=== PATIENT | female | born 1995 | race American Indian/Alaskan Native ===

== ENCOUNTER 2017-12-03 18:59 | Outpatient (CLI) | payer OTHER, MEDICAID ==
[2017-12-03 20:06] VITALS: BP 127/72
[2017-12-03] MEDS ORDERED: VISTARIL PO ONE (20:25)
== END 2017-12-03 20:39 | disposition home or self-care (01) ==
LOC: TRG 18:59
PROVIDERS: ATTEND Obstetrics & Gynecology
DX: O47.1 False labor at or after 37 completed weeks of gestation (principal); Z3A.38 38 weeks gestation of pregnancy
CPT/HCPCS: Q0177

== ENCOUNTER 2017-12-08 12:56 | Outpatient (CLI) | payer OTHER, MEDICAID ==
[2017-12-08] MEDS ORDERED: VISTARIL PO ONE (16:22)
[2017-12-12 17:38] VITALS: BP 127/74
== END 2017-12-08 16:30 | disposition home or self-care (01) ==
LOC: TRG 12:56
PROVIDERS: ATTEND Obstetrics & Gynecology
DX: O62.9 Abnormality of forces of labor, unspecified (principal); Z3A.39 39 weeks gestation of pregnancy
CPT/HCPCS: Q0177

== ENCOUNTER 2017-12-09 06:35 | Outpatient (CLI) | payer OTHER, MEDICAID ==
[2017-12-09] MEDS ORDERED: VISTARIL PO PRN (09:01)
[2017-12-12 16:11] VITALS: BP 124/69
== END 2017-12-09 09:05 | disposition home or self-care (01) ==
LOC: TRG 06:35
PROVIDERS: ATTEND Obstetrics & Gynecology
DX: O62.9 Abnormality of forces of labor, unspecified (principal); O48.0 Post-term pregnancy; Z3A.40 40 weeks gestation of pregnancy
CPT/HCPCS: 59025; Q0177

== ENCOUNTER 2017-12-12 09:49 | Inpatient (IN) | payer OTHER, MEDICAID ==
[2017-12-12] MEDS ORDERED: NITRATEST PAPER MC ONE (14:40)
--- NOTE | 2017-12-12 15:02 | History and Physical Report ---
History of Present Illness Date of examination: 12/12/17 Chief complaint: painful contractions History of present illness: EDC Calculations by LMP: 12/12/2017 Past History : 4 Term Births: 2 Living Children: 2 Para: 2 Aborta: 1 Elect. Ab: 1 # 1 Delivery date: 01/27/2015 Weeks Gestation: 40 labor: no Delivery type: Anesthesia type: epidural Delivery location: [place] Infant Sex: Male weight: 6-2 # 2 Delivery date: 10/01/2016 Weeks Gestation: 40 labor: no Delivery type: Anesthesia type: none Delivery location: [place] Sex: Male weight: 6-9 # 3 Delivery date: 03/07/2017 Weeks Gestation: 5 Delivery type: EAB Comments: had surgical termination, cleared by u/s 03/21 Past Medical History: Negative Past Medical History Past Surgical History: negative Past Medical History Anesthesia Complications: negative Anemia: negative Autoimmune Disorder: negative Bleeding Disorder: negative Blood Transfusions: negative Breast Disease: negative Diabetes: negative Heart Disease: negative Hypertension: negative Hepatitis/Liver Disease: negative Kidney Disease/UTI: negative Neurologic/Epilepsy/Migraines: negative Phlebitis/Varicosities: negative Psychiatric: negative Pulmonary Disease/Asthma: negative Thyroid Disease: negative Hospitalizations: negative Surgery (Non-garment presser): negative Abnormal PAP: negative JORDON Exposure: negative Infertility: negative Uterine Anomaly: negative Uterine Surgery (not C/S): negative Other Gynecologic Problems: negative Infection History Hx of STD: none HIV Risk Eval: low risk Hepatitis B Risk Eval: low risk Personal hx. of genital herpes: no Partner hx. of genital herpes: no Varicella/Chicken Pox Status: Immunized TB Risk: no Genetic History Congenital Heart Defect: Mom: no Dad: no [place] Disease: Mom: no Dad: no Thalassemia Mom: no Dad: no Neural Tube Defect Mom: no Dad: no Down's Syndrome Mom: no Dad: no Tom-Sachs Mom: no Dad: no Sickle Cell Disease/Trait Mom: no Dad: no Hemophilia Mom: no Dad: no Muscular Dystrophy Mom: no Dad: no Cystic Fibrosis Mom: no Dad: no [place] Chorea Mom: no Dad: no Mental Retardation Mom: no Dad: no Fragile X Mom: no Dad: no Other Genetic/Chromosomal Disorder Mom: no Dad: no Child w/other defect Mom: no Dad: no Enviromental Exposures Xray Exposure: no Medication, drug, or alcohol use since LMP: no Chemical/Other Exposure: no Exposure to Cat Liter: no Hx of Parvovirus (Fifth Disease): no Active Medications (reviewed today): None Current Allergies (reviewed today): No known allergies Past History Past Medical History: other (see HPI) Past Surgical History: other (see HPI) 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) Family/Genetic History: other (See HPI) - Obstetrical History Expected Date of Delivery: 12/15/17 Actual Gestation: 39 Week(s) 4 Day(s) : 4 Para: 2 Hx # Term Pregnancies: 2 Number of Pregnancies: 0 Spontaneous Abortions: 0 Induced : 1 Number of Living Children: 2 Medications and Allergies Allergies Allergy/AdvReac Type Severity Reaction Status Date / Time No Known Allergies Allergy Unverified 12/03/17 20:24 Review of Systems All systems: negative - Vital Signs Vital signs: Vital Signs Temp Resp 97.8 F 20 12/12/17 10:06 12/12/17 10:06 Temp Pulse Resp BP Pulse Ox 97.8 F 100 H 20 120/74 99 12/12/17 10:06 12/12/17 10:28 12/12/17 10:06 12/12/17 10:09 12/12/17 10:28 - Physical Exam Breasts: Positive: normal Cardiovascular: Regular rate Lungs: Positive: Clear to auscultation, Normal air movement Abdomen: Positive: normal appearance, soft Genitourinary (Female): Positive: normal external genitalia, normal perenium Vulva: both: normal Vagina: Positive: normal moisture Uterus: Positive: normal size, normal contour Anus/Rectum: Positive: normal perianal skin Extremities: Positive: normal Deep Tendon Reflex Grade: Normal +2 - Obstetrical FHR: auscultation normal, category 1 Uterine Contraction Monitor Mode: External Uterine Contraction Frequency (min): 2-4 Uterine Contraction Pattern: Regular Uterine Tone Measurement Phase: Contraction Uterine Contraction Intensity: Strong/Firm Results Result Diagrams: 12/12/17 15:57 All other labs normal. Assessment and Plan Patient presented to labor and delivery with c/o contractions, after ambulating patient is no 5/80/-2 w/BBOW per triage exam. Patient'slevel of pain has also increased since arrival indicating the transition from early to active labor. GBS neg, patient's complicated by late care @ 20 weeks. Admission orders in EMR. Anticipate . - Patient Problems (1) 39 weeks gestation of Current Visit: Yes Status: Acute (2) Active labor at term Current Visit: Yes Status: Acute
[2017-12-12] MEDS ORDERED: BRETHINE SUB-Q PRN (15:03)
[2017-12-12] MEDS ORDERED: ePHEDrine SULFATE IV PRN (15:03)
[2017-12-12] MEDS ORDERED: STADOL IV PRN (15:03)
[2017-12-12] MEDS ORDERED: MINERAL OIL PO PRN (15:03)
[2017-12-12] MEDS ORDERED: ZOFRAN IV PRN (15:03)
[2017-12-12] MEDS ORDERED: SUBLIMAZE IV PRN (15:03)
[2017-12-12] MEDS ORDERED: XYLOCAINE 2% INFILTRATI ONE (16:00)
[2017-12-12] MEDS ORDERED: PITOCin/NS 20 UNIT/1000ML DRIP 20 UNITS/1,000 ML BAG IV SCH ×2 (16:00→18:00)
[2017-12-12] MEDS ORDERED: LACTATED RINGERS 1,000 ML IV SCH (16:00)
[2017-12-12 16:20] LABS: Hematocrit 31.7 % (30.3-42.9); Hemoglobin 9.9 gm/dl (10.1-14.3); Mean Corpuscular HGB Conc 31 % (30-34); Mean Corpuscular Hemoglobin 26 pg (28-32); Mean Corpuscular Volume 83 fl (79-97); Platelet Count 275 K/mm3 (140-440); Red Blood Count 3.82 M/mm3 (3.65-5.03); Red Cell Distribution Width 15.2 % (13.2-15.2)
--- NOTE | 2017-12-12 17:15 | Procedure Note ---
OB Delivery Note - Delivery Date of Delivery: 12/12/17 ( male) Seismology Teacher: ROSY LANDIS Estimated blood loss: 300cc - Vaginal Delivery presentation: vertex Delivery position: OA Intrapartum events: none Delivery induction: none Delivery augmentation: rupture of membranes Delivery monitor: external FHT, external uterine Route of delivery: Delivery placenta: spontaneous Delivery cord: 3 umbilical vessels Episiotomy: none Delivery laceration: none Anesthesia: none Delivery comments: male del over intact perineum, infant placed skin to skin on mother's abd. 3 vessel cord clamped and cut. cord blood collected. Placenta del intact and complete. no lacerations to repair. EBL 300, apgars 8/9. Mother and remain LDR stable. - A at 1 minute: 8 at 5 minutes: 9 Gender: Male
[2017-12-12] MEDS ORDERED: BENADRYL PO PRN (17:19)
[2017-12-12] MEDS ORDERED: TUCKS PAD TP PRN (17:19)
[2017-12-12] MEDS ORDERED: MILK OF MAGNESIA PO PRN (17:19)
[2017-12-12] MEDS ORDERED: TYLENOL PO PRN (17:19)
[2017-12-12] MEDS ORDERED: DULCOLAX PR PRN (17:19)
[2017-12-12] MEDS ORDERED: NORCO 5/325 PO PRN (17:19)
[2017-12-12] MEDS ORDERED: PHENERGAN PO PRN (17:19)
[2017-12-12] MEDS ORDERED: LANSINOH TP PRN (17:19)
[2017-12-12] MEDS ORDERED: SODIUM CHLORIDE FLUSH SYRINGE 10 ML IV SCH (18:00)
[2017-12-12] MEDS: MOTRIN PO SCH (20:04)
[2017-12-12] MEDS ORDERED: METHERGINE IM ONE (23:16)
[2017-12-12] MEDS: COLACE PO SCH (23:33)
[2017-12-13] MEDS: MOTRIN PO SCH ×4 (02:38→16:48)
[2017-12-13] MEDS: METHERGINE PO SCH ×3 (05:27→16:48)
[2017-12-13 05:29] LABS: Hematocrit 24.9 % (30.3-42.9)
[2017-12-13] MEDS ORDERED: BOOSTRIX IM ONE (06:00)
--- NOTE | 2017-12-13 08:46 | Discharge Summary ---
Providers - Providers Date of Admission: 12/12/17 09:50 Date of discharge: 12/13/17 (desires d/c home today) Attending physician: JOSE ANTONIO LEWIS 12/12/17 17:20 Consult to Aircraft Pneudraulics Repairer [CONS] Routine Reason For Exam: assistance with , SNS Primary care physician: JOSE ANTONIO LEWIS Hospitalization Reason for admission: labor Condition: Good Procedures: vaginal delivery Hospital course: uncomplicated vaginal delivery and course Disposition: - TO HOME OR SELFCARE - Discharge Diagnoses (1) Anemia Status: Acute Qualifiers: Anemia type: iron deficiency (2) Spontaneous vaginal delivery Status: Acute Core Measure Documentation - Palliative Care Palliative Care/ Comfort Measures: Not Applicable - Core Measures Any of the following diagnoses?: none Exam - Constitutional Vitals: Temp Pulse Resp BP Pulse Ox 98.6 F 78 18 114/74 100 12/13/17 04:00 12/13/17 04:00 12/13/17 05:27 12/13/17 04:00 12/12/17 16:08 General appearance: Present: no acute distress, well-nourished - EENT Eyes: Present: PERRL ENT: hearing intact, clear oral mucosa - Neck Neck: Present: supple, normal ROM - Respiratory Respiratory effort: normal Respiratory: bilateral: CTA - Cardiovascular Heart Sounds: Present: S1 & S2. Absent: rub, click - Extremities Extremities: pulses symmetrical, No edema Peripheral Pulses: within normal limits - Abdominal General gastrointestinal: Present: soft, non-tender, non-distended, normal bowel sounds Female genitourinary: Present: normal - Integumentary Integumentary: Present: clear, warm, dry - Musculoskeletal Musculoskeletal: gait normal, strength equal bilaterally - Psychiatric Psychiatric: appropriate mood/affect, intact judgment & insight - Neurologic Neurologic: CNII-XII intact, moves all extremities - Additional findings Additional findings: Fundus firm, lochia scant, bottle feeding, VSSAF, H&H 8/24.9 (existing anemia prior to delivery, asymptomatic.) Plan Activity: no restrictions Diet: regular Follow up with: JOSE ANTONIO LEWIS MD [Primary Care Provider] - 7 Days (Congratulations! Please call [phone] to schedule your son's circumcision in 1 week and your appointment in 4 weeks. bring EMLA cream to your son's visit and await further instructions. Call for any questions or concerns.)
[2017-12-13] MEDS ORDERED: PRENATAL VITAMIN PO SCH (10:00)
[2017-12-13] MEDS: COLACE PO SCH (10:39)
[2017-12-13 19:00] VITALS: BP 118/72
== END 2017-12-13 20:00 | disposition home or self-care (01) | DRG 775 ==
LOC: TRG 09:49 → LD 09:50 → TRG 11:52 → OB 19:55
PROVIDERS: ADMIT Obstetrics & Gynecology; ATTEND Obstetrics & Gynecology
PROC: 10E0XZZ Delivery of Products of Conception, External Approach (ICD-10-PCS; principal; 2017-12-12)
PROC: 3E0234Z Introduction of Serum, Toxoid and Vaccine into Muscle, Percutaneous Approach (ICD-10-PCS; 2017-12-13)
DX: O99.02 Anemia complicating childbirth (principal); Z3A.39 39 weeks gestation of pregnancy; Z37.0 Single live birth; Z23 Encounter for immunization; D50.9 Iron deficiency anemia, unspecified
CPT/HCPCS: 36415; 85014; 85018; 85027; 86592; 86850; 86900; 86901; J2210; J2590; J7120

== ENCOUNTER 2018-02-07 12:11 | Emergency (ER) | payer OTHER, MEDICAID ==
[2018-02-07 12:29] VITALS: BP 126/64
== END 2018-02-07 15:41 | disposition left against medical advice (07) ==
LOC: ED 12:11
DX: L29.9 Pruritus, unspecified (principal); Z53.21 Procedure and treatment not carried out due to patient leaving prior to being seen by health care provider

== ENCOUNTER 2021-03-11 12:35 | Emergency (ER) | payer MEDICAID, OTHER ==
[2021-03-11 13:38] VITALS: BP 109/65
[2021-03-11 14:42] LABS: Bacteria,Urine 4+ /HPF (Negative); Mucus,Urine 3+ /HPF
[2021-03-11 14:44] LABS: Bilirubin,Urine NEG (Negative); Blood,Urine NEG (Negative); Color,Urine Yellow (Yellow)
== END 2021-03-11 16:05 | disposition left against medical advice (07) ==
LOC: ED 12:35
DX: R10.9 Unspecified abdominal pain (principal); Z53.21 Procedure and treatment not carried out due to patient leaving prior to being seen by health care provider
CPT/HCPCS: 81001